=== PATIENT | male | born 1985 | race Caucasian/White ===

== ENCOUNTER 2017-04-16 16:57 | Emergency (ER) | payer OTHER ==
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
[2017-04-16 18:40] VITALS: BP 145/80; PULSE 81; RESP 16; TEMP 98.6; O2SAT 98
[2017-04-16 18:44] LABS: HEPATITIS C ANTIBODY TOTAL NEGATIVE (NEGATIVE); HIV TYPE 1 AND 2 NEGATIVE (NEGATIVE)
== END 2017-04-16 18:46 | disposition home or self-care (01) ==
DX: Z77.21 Contact with and (suspected) exposure to potentially hazardous body fluids (principal)
CPT/HCPCS: G0472